=== PATIENT | female | born 1995 | race Caucasian/White ===

== ENCOUNTER 2024-11-02 03:52 | Inpatient (IN) | payer OTHER ==
[2024-11-02] MEDS ORDERED: LANSINOH 40 GM TOP PRN (04:41)
[2024-11-02] MEDS ORDERED: Dulcolax 10 MG SUPP PR PRN (04:41)
[2024-11-02] MEDS ORDERED: Reglan 10 MG/2 ML ONE (05:22)
[2024-11-02] MEDS ORDERED: SOD CITRATE-CITRIC ACID SOLN ONE (05:22)
[2024-11-02] MEDS ORDERED: Lactated Ringers 1,000 ML IV ONE ×3 (05:22→08:00)
[2024-11-02] MEDS ORDERED: Pepcid 20 MG VIAL IV ONE (05:22)
[2024-11-02] MEDS ORDERED: CEFAZOLIN SODIUM ONE (05:23)
[2024-11-02 06:09] LABS: Hematocrit 36.5 % (34.1-44.9); Hemoglobin 11.9 g/dL (11.2-15.7); Mean Corpuscular Hemoglobin 29.3 pg (25.6-32.2); Mean Corpuscular Hgb Concent. 32.6 g/dL (32.2-35.5); Platelet Count 182 x10^3/uL (182-369); Red Blood Count 4.06 x10^6/uL (3.93-5.22); White Blood Count 7.0 x10^3/uL (3.98-10.04)
[2024-11-02] MEDS: Lactated Ringers 1,000 ML IV SCH (06:15)
[2024-11-02 06:26] LABS: INR 0.9 (0.8-3.0); PROTIME 9.9 SECONDS (9.4-12.5); PTT 23.9 SECONDS (25.1-36.5)
[2024-11-02] MEDS: SOD CITRATE-CITRIC ACID SOLN PO SCH (06:45)
[2024-11-02] MEDS: Reglan 10 MG/2 ML IV SCH (06:46)
[2024-11-02] MEDS: Pepcid 20 MG VIAL IV SCH (06:46)
[2024-11-02 06:48] LABS: ABO TYPING A
[2024-11-02 06:49] LABS: RH TYPING POSITIVE
[2024-11-02] MEDS ORDERED: HOLD NARCOTIC ANALGESICS AND SEDATIVES X24 HR MC PRN (07:00)
[2024-11-02] MEDS ORDERED: Narcan 0.4 MG/ML IV PRN (07:00)
[2024-11-02] MEDS ORDERED: MORPHINE SULFATE 2 MG INJ IV PRN (07:00)
[2024-11-02] MEDS ORDERED: PERCOCET TABLET 5/325MG PO PRN (07:00)
[2024-11-02] MEDS ORDERED: BENADRYL 50 MG/ML IV PRN (07:00)
[2024-11-02] MEDS ORDERED: DEMEROL 50 MG IV PRN (07:00)
[2024-11-02] MEDS ORDERED: Astramorph-Pf 5 MG/10 ML ONE (07:29)
[2024-11-02] MEDS ORDERED: Zofran 4 MG/2 ML VIAL ONE (07:35)
[2024-11-02] MEDS ORDERED: Pitocin 10 UNITS/ML ONE (08:09)
[2024-11-02] MEDS ORDERED: propofoL IV ONE (08:25)
[2024-11-02] MEDS ORDERED: Xylocaine-Mpf 2% 5 Ml Vial ONE (08:25)
[2024-11-02] MEDS ORDERED: Marcaine 0.5%/Epinephrine 10 ML ONE (08:45)
[2024-11-02] MEDS ORDERED: BENADRYL 50 MG/ML ONE (09:03)
[2024-11-02 09:30] LABS: Glucose, Urine Negative (Negative); Protein,Urine Dip Negative (Negative); RBC 0-2 /HPF (0-5); WBC 0-2 /HPF (0-5)
[2024-11-02] MEDS: Zofran 4 MG/2 ML VIAL IV PRN (09:30)
[2024-11-02 09:36] LABS: Amphetamine,Urine NEGATIVE (NEGATIVE); Barbiturate,Urine NEGATIVE (NEGATIVE); Benzodiazepine,Urine NEGATIVE (NEGATIVE); Cocaine,Urine NEGATIVE (NEGATIVE); Methadone,Urine NEGATIVE (NEGATIVE); Opiate,Urine NEGATIVE (NEGATIVE); PCP,Urine NEGATIVE (NEGATIVE); THC,Urine NEGATIVE (NEGATIVE)
[2024-11-02] MEDS: Mylicon 80MG PO PRN (11:52)
[2024-11-02] MEDS: CLARITIN 10 MG PO PRN (11:52)
[2024-11-02] MEDS: Docusate Sodium 100 MG PO SCH (11:53)
[2024-11-02] MEDS: FERREX 150 PO SCH (11:53)
[2024-11-02] MEDS: Dextrose 5%-Lr IV Solution 1000 ML 1,000 ML IV SCH (17:42)
[2024-11-02] MEDS: Nubain 10 MG/ML IV PRN (22:11)
[2024-11-03] MEDS: TYLENOL EXTRA STRENGTH 500 MG PO PRN (05:01)
[2024-11-03 05:43] LABS: BASOPHIL % 0.2 % (0.1-1.2); Basophil (Absolute #) 0.02 x10^3/uL (0.01-0.08); Eosinophil (Absolute #) 0.03 x10^3/uL (0.04-0.36); Hematocrit 30.4 % (34.1-44.9); Hemoglobin 9.6 g/dL (11.2-15.7); IMMATURE GRAN # 0.07 x10^3u/L (0.001-0.031); IMMATURE GRAN % 0.6 % (0.001-0.429); Lymphocyte (Absolute #) 2.11 x10^3/uL (1.18-3.74); Mean Corpuscular Hemoglobin 29.0 pg (25.6-32.2); Mean Corpuscular Hgb Concent. 31.6 g/dL (32.2-35.5); Monocyte (Absolute #) 0.50 x10^3/uL (0.24-0.86); NUCLEATED RBC # 0.00 x10^3u/L (0.00-0.012); NUCLEATED RBC % 0.0 % (0.00-0.2); Platelet Count 147 x10^3/uL (182-369); Red Blood Count 3.31 x10^6/uL (3.93-5.22); White Blood Count 11.2 x10^3/uL (3.98-10.04)
[2024-11-03] MEDS ORDERED: DEMEROL 50 MG IV PRN (07:00)
--- NOTE | 2024-11-03 10:28 | OP ---
SURGERY DATE/TIME: 11/02/2024 [id number] PREOPERATIVE DIAGNOSES: 1) Term intrauterine . 2) History of prior section. 3) Desires permanent sterilization. POSTOPERATIVE DIAGNOSES: 1) Term intrauterine . 2) History of prior section. 3) Desires permanent sterilization. PROCEDURE: Repeat low transverse section with bilateral tubal ligation. SURGEON: Brando Bey MD ANESTHESIA: Spinal by Ankit Davis CRNA. QUANTITATIVE BLOOD LOSS: 742 mL. URINE: 100 mL of clear, straw-colored urine. SPECIMENS: Bilateral fallopian tube segments. DESCRIPTION OF PROCEDURE AND FINDINGS: After informed written consent was obtained, the patient was taken to the operating room. She underwent spinal anesthesia then had a Schwartz catheter inserted, was prepped and draped in the usual sterile fashion. After adequate level of anesthesia was assessed, low transverse skin incision was made through a prior skin incision and carried down through the subcutaneous fat to the level of the fascia. The fascia was nicked on both sides of the midline and extended in horizontal using curved East scissors. Superior free edge of the fascia was grasped with Azael clamps, and the underlying rectus muscles were dissected free. The same was repeated inferiorly. Peritoneal cavity was entered bluntly and extended in the horizontal then bladder flap was created and reflected over the lower uterine segment. Horizontal uterine incision was made by knife and carried down to the level of the amniotic membranes which were carefully artificially ruptured. Viable male was delivered from the vertex presentation where oropharynx and nares were bulb suctioned free and then the cord was clamped and cut, and he was handed off to the waiting nursery team. He had good tone and good respiratory effort immediately upon delivery. The placenta was manually extracted, and the uterus was exteriorized. Uterine cavity was sponge curetted clean with a lap sponge and then the uterine incision was closed with #1 chromic in a running locked fashion. Good closure and good hemostasis were achieved at this level. Next, the left fallopian tube was grasped with the Jam, and electrocautery was used to make a window in the mesosalpinx. Proximal and distal tube segments then were ligated with 0 chromic tie. The interceding tube segment was dissected with Metzenbaum scissors, and then the free edge of the tube was cauterized with electrocautery. This was repeated on the right side and both specimens were sent for pathology. There was no bleeding and no complications encountered. Posterior cul-de-sac was wiped free of blood and clot then the uterus was returned to the peritoneal cavity. Lateral gutters were wiped free of blood and clot. Again, the uterine incision was inspected and noted to be hemostatic. Next, the fascia was closed with 0 Vicryl in a running fashion. Good closure and good hemostasis were achieved at this level. Subcutaneous fat was irrigated with warm sterile saline. Any areas of bleeding were cauterized with electrocautery. Finally, skin layer was closed with 4-0 undyed Vicryl in a running subcuticular fashion. Steri-Strips and an occlusive dressing were placed over the incision. The patient was transferred to the recovery room in good condition.
[2024-11-03] MEDS: MOTRIN 400 MG PO PRN (12:31)
[2024-11-03] MEDS: Adacel Vial IM ONE (12:32)
[2024-11-03] MEDS: NORCO 5/325 MG PO PRN (20:50)
--- NOTE | 2024-11-04 11:37 | PCM.DS ---
Discharge Summary Date of Admission: 11/02/24 05:07 Admitting Physician: SARA RIOJAS Consults: Consults on Case 11/02/24 03:57 Notify Anesthesia Provider ROUTINE Notify Physician OF ADMISSION 11/02/24 07:00 Notify Anesthesia Provider PRN Primary Care Provider: SARA RIOJAS Allergies Allergies sulfamethoxazole [From Bactrim] Allergy (Verified 11/02/24 04:23) trimethoprim [From Bactrim] Allergy (Verified 11/02/24 04:23) OB Hospital Summary - Hospital Course Hospital Course: patient had uncomplicated repeat with tubal, doing well postop with good pain control, taty po, voiding without difficulty, ambulating and mild lochia Reason for Admission: Section Delivery Method: Repeat Section Other Post Procedures: Tubal Ligation Complications: None OB Discharge Diagnosis: IUP at Term Delivery [place] Baby: Male - Vitals & Intake/Output Vital Signs: Vital Signs Temperature 98.6 F 11/04/24 01:42 Pulse Rate 65 11/04/24 01:42 Respiratory Rate 17 11/04/24 01:42 Blood Pressure 113/55 11/04/24 01:42 O2 Sat by Pulse Oximetry 98 11/04/24 01:42 Intake & Output: Intake & Output 11/01/24 11/02/24 11/03/24 11/04/24 11:59 11:59 11:59 11:59 Intake Total 4500 1100 Output Total 1700 Balance 2800 1100 Weight 90.718 kg - Lab Result Diagrams: 11/03/24 05:30 Micro Results-Entire Visit: Microbiology 11/02/24 07:50 Urine Culture - Final Catherized NO GROWTH - Procedures and Test Procedures and Tests throughout Hospitalization: Therapy Orders & Screens 11/02/24 08:19 Standby STAT Comment: Diagnosis: repeat c/s with tubal ligation OB Discharge Exam General Appearance: no apparent distress Neurologic Exam: alert, oriented x 3 Skin Exam: normal color, warm, dry Respiratory Exam: normal breath sounds, lungs clear, No respiratory distress Cardiovascular Exam: regular rate/rhythm, normal heart sounds Gastrointestinal/Abdomen Exam: soft, other (optifoam dressing clean,dry, intact) Extremity Exam: normal inspection, normal range of motion - Discharge Disposition: Home, Self-Care Condition: Stable Prescriptions: New Hydrocodone/Acetaminophen [Hydrocodone-Acetamin 5-325 mg] 1 tab PO Q6HPRN PRN #12 tablet MDD 4 PRN Reason: Pain Continue Pnv No.103/Folic/Om3s/Fish Oil [ Gummies] 1 tab .ROUTE DAILY Discontinued Ferrous Sulfate 325 mg [Feosol 325 mg] 325 mg PO BREAKFAST Follow up with: SARA RIOJAS MD [Primary Care Provider, FAMILY [facility]ACTICE] - 1 Week
[2024-11-04 15:24] VITALS: BP 112/65; PULSE 92; RESP 18; TEMP 98; O2SAT 97
== END 2024-11-04 13:40 | disposition home or self-care (01) | DRG 785 ==
LOC: OB 05:07
PROVIDERS: ADMIT Family Medicine; ATTEND Family Medicine
PROC: 10D00Z1 Extraction of Products of Conception, Low, Open Approach (ICD-10-PCS; principal; 2024-11-02)
PROC: 0UT70ZZ Resection of Bilateral Fallopian Tubes, Open Approach (ICD-10-PCS; 2024-11-02)
DX: O34.219 Maternal care for unspecified type scar from previous cesarean delivery (principal); Z3A.38 38 weeks gestation of pregnancy; Z37.0 Single live birth; Z30.2 Encounter for sterilization